=== PATIENT | male | born 1970 | race African-American/Black ===

== ENCOUNTER 2016-10-20 19:58 | Observation (INO) ==
[2016-10-20] MEDS ORDERED: ASPIRIN PO STA (20:41)
[2016-10-20 20:48] LABS: MANUAL DIFF NEEDED? NO
[2016-10-20 20:50] LABS: BASO% 0.1 % (0.0-0.8); EOS# 0.07 X1000 (0.0-0.7); EOS% 0.9 % (0.0-10.0); HEMATOCRIT 41.3 % (42.0-52.0); HEMOGLOBIN 14.1 g/dL (14.0-18.0); LYMPH# 3.26 X1000 (1.2-3.4); LYMPH% 41.3 % (20.5-51.1); MCH 31.3 PG (27-31); MCHC 34.1 g/dL (33-37); MCV 91.8 FL (81-99); MONO# 0.76 X1000 (0.11-0.59); MONO% 9.6 % (1.7-9.3); MPV 9.8 FL (7.4-10.4); NEUT% 48.1 % (42.2-75.2); PLT 297 X1000 (130-400)
[2016-10-20 20:59] LABS: INR 1.04; PTT 26.9 Seconds (22.0-36.0)
[2016-10-20 21:05] LABS: AGAP 14; ALBUMIN 4.4 g/dL (3.5-5.0); ALKALINE PHOSPHATASE 64 U/L (32-122); BUN 17 mg/dL (8-22); CALCIUM 9.2 mg/dL (8.8-10.2); CHLORIDE 100 mmol/L (98-107); COSMO 282; GOT 18 U/L (10-34); GPT 19 U/L (10-44); MAGNESIUM 1.9 mg/dL (1.5-2.7); POTASSIUM 3.6 mmol/L (3.5-5.1); SODIUM 140 mmol/L (136-145); TCO2 26 mmol/L (25-35); TOTAL BILIRUBIN 0.27 mg/dL (0.20-1.00); TOTAL PROTEIN 8.1 g/dL (6.3-8.3)
[2016-10-20 21:09] LABS: CK PROFILE 402 U/L (24-204)
[2016-10-20 21:31] LABS: CK INDEX 1.2 (0.0-2.5); CK-MB 4.75 ng/mL (0.0-5.0)
--- NOTE | 2016-10-20 22:39 | PROVIDER DOCUMENTATION ---
This chart was entered by Danielle Hood Scribe, acting as scribe for Rahul Greco CRNP. HPI-Chest Pain - General Chief Complaint: Chest Pain Stated Complaint: CP Time Seen by Provider: 10/20/16 21:20 Source: patient Allergies/Adverse Reactions: Patient Allergies Allergy/AdvReac Type Severity Reaction Status Date / Time methylprednisolone sodium Allergy Mild "makes him Verified 10/20/16 21:36 succ... * crazy' [From Solu-Medrol] Home Medications: Home Medication List Medication Instructions Recorded Confirmed Last Taken Type Amlodipine [Norvasc] 5 mg PO BID #60 tablet 05/04/16 10/20/16 10/20/16 Rx Clonidine [Catapres] 0.1 mg PO BID 09/05/16 10/20/16 10/20/16 History Esomeprazole [Nexium] 40 mg PO DAILY 09/05/16 10/20/16 10/20/16 History Losartan Potassium [Cozaar] 100 mg PO BID 09/05/16 10/20/16 10/20/16 History Aspirin 81 mg PO DAILY 10/12/16 10/20/16 10/19/16 History - History of Present Illness-CP Location: reports: substernal Chest Pain Radiation: reports: no radiation Quality of Pain: reports: aching Severity in ED: mild Onset/Duration: this evening Timing: still present Aspirin Treatment Today: 325 mg x 1, provided by ED Similar Symptoms Previously?: No Recently Seen Here or By Another Healthcare Provider: No Review of Systems - Adult - REVIEW OF SYSTEMS - ADULT Constitutional: denies: chills, fever Eyes: reports: no symptoms reported Ears, Nose, Mouth & Throat: reports: no symptoms reported Cardiovascular: reports: chest pain. denies: palpitations Respiratory: denies: cough, shortness of breath Gastrointestinal: reports: nausea. denies: vomiting Genitourinary: denies: dysuria, hematuria Musculoskeletal: denies: joint pain, neck pain Integumentary: denies: skin sores/ulcer, skin thickening Neurological: reports: no symptoms reported Psychiatric: reports: no symptoms reported Endocrine: reports: no symptoms reported Hematologic/Lymphatic: reports: no symptoms reported Allergic/Immunologic: reports: no symptoms reported All Other Systems: Reviewed and Negative Past History - Adult - PAST MEDICAL HISTORY-ADULT Review of Records: reports: Nursing Assessment Review, Medications Reviewed Major Childhood Illnesses: reports: denies history Cardiovascular: reports: HTN Respiratory: reports: denies history Gastrointestinal: reports: GERD Obstetrical/Gynecological: reports: denies history Genitourinary: reports: denies history Musculoskeletal: reports: chronic pain, neck/back injury Neurological: reports: CVA, other (pinched nerve in the back) Endocrine/Immune: reports: thyroid disorder Other Conditions: reports: denies history - PRIOR SURGERIES/PROCEDURES Surgical/Procedure History: reports: other (circumcision) - IMMUNIZATION STATUS Childhood Immunizations: UTD Flu Vaccine: UTD - FAMILY HISTORY Family History: reviewed, not pertinent - SOCIAL HISTORY Smoking: non-smoker Substance Use: none/never Alcohol Use Frequency: never Physical Exam-General - PHYSICAL EXAM-ADULT Initial Vital Signs Reviewed: Yes - CONSTITUTIONAL General Appearance: appears well, alert, no apparent distress - RESPIRATORY Respiratory: chest non-tender, lungs clear, normal breath sounds - CARDIOVASCULAR Cardiovascular: normal peripheral pulses, regular rate, rhythm, no edema - GASTROINTESTINAL (ABDOMEN) Abdominal Exam: non tender, soft - MUSCULOSKELETAL Extremity: normal inspection - SKIN Integumentary: normal color, normal turgor, warm/dry - PSYCHIATRIC Psych/Mental Status: normal mood/affect, normal thought content, normal thought process, oriented x 3 Progress - PLAN OF CARE/RESULTS Progress/Plan/Lab Results: Vital Signs - 8 hr 10/20/16 20:00 10/20/16 23:10 Temperature 98.3 F Pulse Rate 64 72 Respiratory Rate 18 18 Blood Pressure 174/102 182/150 O2 Sat by Pulse Oximetry 95 98 Laboratory Results - last 24 hr 10/20/16 10/20/16 10/20/16 20:05 20:05 20:05 WBC 7.90 RBC 4.50 L Hgb 14.1 Hct 41.3 L MCV 91.8 MCH 31.3 H MCHC 34.1 RDW Std Deviation 12.8 Plt Count 297 MPV 9.8 Immature Gran % (Auto) 0.0 Neut % (Auto) 48.1 Lymph % (Auto) 41.3 [place] % (Auto) 9.6 H Eos % (Auto) 0.9 Baso % (Auto) 0.1 Immature Gran # (Auto) 0.00 Neut # (Auto) 3.80 Lymph # (Auto) 3.26 [place] # (Auto) 0.76 H Eos # (Auto) 0.07 Baso # (Auto) 0.01 PT INR PTT (Actin FS) D-Dimer 0.17 Sodium 140 Potassium 3.6 Chloride 100 Carbon Dioxide 26 Anion Gap 14 BUN 17 Creatinine 1.0 Estimated GFR/1.73 m2 > 60 BUN/Creatinine Ratio 17 Glucose 109 H Calculated Osmolality 282 Calcium 9.2 Magnesium 1.9 Total Bilirubin 0.27 AST 18 ALT 19 Alkaline Phosphatase 64 Creatine Kinase 402 H Creatine Kinase Index 1.2 CK-MB (CK-2) 4.75 Troponin T Vaz-I-Xexxvbpuyti Pept Total Protein 8.1 Albumin 4.4 Globulin 3.7 Albumin/Globulin Ratio 1.2 10/20/16 10/20/16 10/20/16 20:05 20:05 20:05 WBC RBC Hgb Hct MCV MCH MCHC RDW Std Deviation Plt Count MPV Immature Gran % (Auto) Neut % (Auto) Lymph % (Auto) [place] % (Auto) Eos % (Auto) Baso % (Auto) Immature Gran # (Auto) Neut # (Auto) Lymph # (Auto) [place] # (Auto) Eos # (Auto) Baso # (Auto) PT 11.0 INR 1.04 PTT (Actin FS) 26.9 D-Dimer Sodium Potassium Chloride Carbon Dioxide Anion Gap BUN Creatinine Estimated GFR/1.73 m2 BUN/Creatinine Ratio Glucose Calculated Osmolality Calcium Magnesium Total Bilirubin AST ALT Alkaline Phosphatase Creatine Kinase Creatine Kinase Index CK-MB (CK-2) Troponin T < 0.010 Tpw-N-Jtaikobvtpk Pept 11 Total Protein Albumin Globulin Albumin/Globulin Ratio 10/20/16 10/20/16 23:00 23:00 WBC RBC Hgb Hct MCV MCH MCHC RDW Std Deviation Plt Count MPV Immature Gran % (Auto) Neut % (Auto) Lymph % (Auto) [place] % (Auto) Eos % (Auto) Baso % (Auto) Immature Gran # (Auto) Neut # (Auto) Lymph # (Auto) [place] # (Auto) Eos # (Auto) Baso # (Auto) PT INR PTT (Actin FS) D-Dimer Sodium Potassium Chloride Carbon Dioxide Anion Gap BUN Creatinine Estimated GFR/1.73 m2 BUN/Creatinine Ratio Glucose Calculated Osmolality Calcium Magnesium Total Bilirubin AST ALT Alkaline Phosphatase Creatine Kinase 413 H Creatine Kinase Index 1.1 CK-MB (CK-2) 4.47 Troponin T < 0.010 Prl-S-Nbvacqlszcw Pept Total Protein Albumin Globulin Albumin/Globulin Ratio Orders Category Date Time Status Admit - [facility] Routine AdmDCTranf 10/20/16 23:46 Ordered Activity - Up with Assistance ORDERED Care 10/20/16 23:46 Active Apply Mechanical Device [QM] ORDERED Care 10/20/16 23:46 Active Intake and Output-Strict ORDERED Care 10/20/16 23:46 Active Nursing- MD Consult Request ROUTINE Care 10/20/16 23:46 Active Vital Signs Order Q 6-HR ASSESS Care 10/20/16 23:46 Active Physician/Provider Consults Routine Cons 10/20/16 23:46 Ordered NPO Diet 10/21/16 00:01 Active CHEST-2 VIEWS [RAD] Stat Exams 10/20/16 20:42 Taken BASIC METABOLIC PANEL [CHEM] Routine Lab 10/21/16 06:00 Ordered CBC WITH DIFF [HEME] DAILY Lab 10/21/16 06:00 Ordered CBC WITH ELECTRONIC DIFF [HEME] Stat Lab 10/20/16 20:05 Completed CK PROFILE [SP CHEM] Stat Lab 10/20/16 20:05 Completed CK PROFILE [SP CHEM] Stat Lab 10/20/16 23:00 Completed COMPREHENSIVE METABOLIC PANEL [CHEM] Stat Lab 10/20/16 20:05 Completed D-DIMER [CHEM] Stat Lab 10/20/16 20:05 Completed LIPID PROFILE W/CALC LDL [LIPIDS] Routine Lab 10/21/16 06:00 Ordered MAGNESIUM [CHEM] Stat Lab 10/20/16 20:05 Completed PRO B-NATRIURETIC PEPTIDE Stat Lab 10/20/16 20:05 Completed PROTIME WITH INR [COAG] Stat Lab 10/20/16 20:05 Completed PTT [COAG] Stat Lab 10/20/16 20:05 Completed TROPONIN T Lab 10/21/16 05:00 Uncollected TROPONIN T Lab 10/21/16 11:00 Uncollected TROPONIN T Stat Lab 10/20/16 20:05 Completed TROPONIN T Stat Lab 10/20/16 23:00 Completed Acetaminophen [Tylenol] Med 10/20/16 23:46 Active 650 mg PO Q6H PRN PRN Amlodipine [Norvasc] Med 10/21/16 09:00 Active 5 mg PO BID Aspirin Med 10/20/16 20:41 Discontinued 325 mg PO STAT STA Aspirin Med 10/21/16 09:00 Active 81 mg PO DAILY Clonidine [Catapres] Med 10/21/16 09:00 Active 0.1 mg PO BID Esomeprazole [Nexium] Med 10/21/16 09:00 Active 40 mg PO DAILY Losartan [Cozaar] Med 10/21/16 09:00 Active 100 mg PO BID Ondansetron [Zofran] Med 10/20/16 23:46 Active 4 mg IV Q4H PRN PRN Telemetry [OM.EQ] Routine Oth 10/20/16 23:46 Active EKG [EKG] Stat Ther 10/21/16 07:00 Ordered Echo Spec/Color Dop W/O Contra Routine Ther 10/21/16 08:00 Ordered Transfer/Admit Order [TRANSFER] Routine Transfer 10/20/16 23:01 Completed Result Diagrams: 10/20/16 20:05 10/20/16 20:05 - EKG 1 Time of EKG reading by physician:: 19:56 EKG Read and Signed by:: Daniel Rust EKG Interpretation (*Must complete 3 of following elements*): Abnormal Rate: 66 Rhythm: NSR [place]: right Comments: possible anterior infarct, age undetermined 2 Time of EKG reading by physician:: 23:03 EKG Read and Signed by:: Daniel Rust EKG Interpretation (*Must complete 3 of following elements*): Normal Rate: 68 Rhythm: NSR [place]: normal - XRAY 1 XRAY Study: Chest Impression: Normal XRAY Interpretation: negative: Aura Greco(ER CROTCH BREAKER) Departure - Departure Time of Disposition Decision: 22:34 DIAGNOSIS: Chest pain Disposition: HOME 01 Certified Medical Emergency: Emergent Condition: Stable Attestation - Physician/ MICHELLE Attestation Patient care was provided by Advanced Practice Provider:: Yes Advanced Practice Provider:: Rahul Greco Advanced Practice Provider documentation review:: The Mid-level provider documentation, treatment plan and medical decision making was reviewed by the physician who agrees with all treatment and medical decision making by the MLP. This chart was documented by the indicated scribe, (Danielle Hood Scribe) and accurately reflects the services I performed and decisions made by , Rahul Greco CRNP, as attested by the provider's signature.
[2016-10-20] MEDS ORDERED: TYLENOL PO PRN (23:46)
[2016-10-20] MEDS ORDERED: ZOFRAN IV PRN (23:46)
[2016-10-21 01:08] LABS: CK INDEX 1.1 (0.0-2.5); CK-MB 4.47 ng/mL (0.0-5.0)
--- NOTE | 2016-10-21 05:37 | EKG Report ---
Test Performed on : 10/20/2016 11:03:13 PM Test Reason : CP Blood Pressure : / mmHG Vent. Rate : 068 BPM Atrial Rate : 068 BPM P-R Int : 186 ms QRS Dur : 088 ms QT Int : 398 ms P-R-T Axes : 027 085 024 degrees QTc Int : 423 ms Normal sinus rhythm. Normal ECG When compared with ECG of 20-OCT-2016 19:56, (Unconfirmed) No significant change was found Unconfirmed Result
--- NOTE | 2016-10-21 05:37 | EKG Report ---
Test Performed on : 10/20/2016 7:56:22 PM Test Reason : No Order in [place] Blood Pressure : / mmHG Vent. Rate : 066 BPM Atrial Rate : 066 BPM P-R Int : 180 ms QRS Dur : 094 ms QT Int : 398 ms P-R-T Axes : 014 106 025 degrees QTc Int : 417 ms Normal sinus rhythm. Rightward axis Possible Anterior infarct , age undetermined Abnormal ECG When compared with ECG of 21-JUN-2016 16:22, QRS axis shifted right Unconfirmed Result
[2016-10-21 06:04] LABS: MANUAL DIFF NEEDED? NO
[2016-10-21 06:24] LABS: BASO% 0.1 % (0.0-0.8); EOS# 0.06 X1000 (0.0-0.7); EOS% 0.8 % (0.0-10.0); HEMATOCRIT 42.4 % (42.0-52.0); HEMOGLOBIN 14.3 g/dL (14.0-18.0); IMM GRAN# 0.02 X1000 (0.0-0.04); IMM GRAN% 0.3 % (0.0-0.5); LYMPH% 32.2 % (20.5-51.1); MCH 30.9 PG (27-31); MCHC 33.7 g/dL (33-37); MCV 91.6 FL (81-99); MONO# 0.76 X1000 (0.11-0.59); MONO% 10.2 % (1.7-9.3); MPV 9.6 FL (7.4-10.4); NEUT% 56.4 % (42.2-75.2); PLT 274 X1000 (130-400); RBC 4.63 XMIL (4.7-6.1)
--- NOTE | 2016-10-21 06:48 | HISTORY AND PHYSICAL ---
PRIMARY CARE PHYSICIAN: Dr. Chintan Burrell. CHIEF COMPLAINT: Chest pain. HISTORY OF PRESENT ILLNESS: This is a 46-year-old, male with a past medical history of hypertension and a history of TIA who presented to the emergency department complaining of chest pain. He is a patient of Dr. Chintan Burrell. The patient was also here in the hospital for radiology. The patient reported that this morning, around 4:00 p.m., he noticed some substernal chest pain like having a squeezing pain in the right and left side of the thorax that radiates to the left arm, that lasted approximately 15-20 minutes, along with some diaphoreses and sensation of mild nausea. At that time, the patient took an aspirin. Apparently, the started easing a little bit. Also, patient was driving when he noticed the same sensation but a little more worse; according to him, 7-8/10 intensity chest pain again, squeezing, radiating again to the left arm, no radiation to jaw or the back, and nausea and diaphoreses so he decided to drive himself to the ER. Even though here in the hospital, pulmonary evaluation, he was still hurting but 5-6/10 in intensity. The patient reports that this problem, he had it 6-7 years ago but now, it is happening again. The patient reports being active and usually goes to the gym but he had not noticed any chest pain while he is doing any exercise at all. Patient is going to be admitted to the hospital for further evaluation and treatment for chest pain. PAST MEDICAL HISTORY: 1. Hypertension. 2. Gastroesophageal reflux disease. 3. History of TIA. Apparently, he was told that he had a stroke but we checked MRI and MRA and that was completely normal. MEDICATIONS: 1. Amlodipine 5 mg p.o. b.i.d. 2. Clonidine 0.1 mg p.o. b.i.d. 3. Nexium 40 mg p.o. daily. 4. Losartan 100 mg p.o. b.i.d. 5. Aspirin 81 mg p.o. b.i.d. 6. Patient is supposed to be on medication for hyperlipidemia but he reported that it caused headaches so it was stopped. FAMILY HISTORY: Noncontributory. SOCIAL HISTORY: He denies drinking alcohol, smoking tobacco, or using illicit drugs. ALLERGIES: Patient is allergic to methylprednisolone, Medrol pack because he reports this medication makes him crazy. REVIEW OF SYSTEMS: Eleven systems were reviewed and all symptoms are related to H and P. No weight gain or loss noted. No fever or chills. PHYSICAL EXAMINATION: VITALS: Temperature 98.3 degrees, heart rate 72, respiratory rate 18, blood pressure 182/102, O2 saturation 95% on room air. GENERAL EXAMINATION: This is a 46-year-old, male, lying in bed, in no acute distress. HEENT: Head is normocephalic and atraumatic. Anicteric sclerae and pale conjunctivae. Mucous membranes moist. NECK: Supple. No JVD noted. No carotid bruits. No lymphadenopathy. No thyromegaly. CARDIOVASCULAR: S1 and S2 heard. No murmurs, gallops, or rubs. Regular rate and rhythm. RESPIRATORY: Clear bilaterally to auscultation. No work of breathing or using accessory muscles. ABDOMEN: Soft, nontender to palpation. Bowel sounds present. No organomegaly. EXTREMITIES: No clubbing, cyanosis, or edema. Peripheral pulses present in both legs. NEUROLOGICAL: Patient is alert and oriented x3. Able to move 4 extremities. Cranial nerves 2-12 are grossly normal. LABORATORY DATA: The CBC and the BMP are completely unremarkable. First set of troponins is negative. CK-MB is normal as well. ASSESSMENT: 1. Chest pain. 2. Uncontrolled hypertension. 3. Hyperlipidemia. PLAN: 1. The patient is going to be admitted to the hospital because of chest pain. We are going to admit him. We will continue the workup. We are going to check troponins 2 more times. First set is completely normal. We are going to check an echocardiogram. We are going to consult cardiology to see this patient, will need to have a stress test or not. We defer the decision to proceed with that exam to cardiology. We are going to repeat an EKG in the a.m., make sure that he is not having any abnormal reading. Also, we are going to continue with aspirin daily. Also, for blood pressure, actually we are going to restart all home medications. He claims that he is taking his medication that he is supposed to but blood pressure is still high, in the range of 180s when I checked on him. At this time, we are going to continue with the same management and keep an eye on him very closely. 2. For gastroesophageal reflux disease, we will continue with the Nexium. 3. Further recommendations to follow according to the clinical situation of the patient. 4. Dr. Chintan Burrell, his primary care physician, will be taking over his case tomorrow morning. cc: MD Chintan Delvalle MD
--- NOTE | 2016-10-21 06:56 | EKG Report ---
Test Performed on : 10/21/2016 06:09:38 AM Test Reason : chest pain Blood Pressure : / mmHG Vent. Rate : 059 BPM Atrial Rate : 059 BPM P-R Int : 204 ms QRS Dur : 096 ms QT Int : 442 ms P-R-T Axes : 031 100 037 degrees QTc Int : 437 ms Sinus bradycardia. Rightward axis Borderline ECG When compared with ECG of 20-OCT-2016 23:03, No significant change was found Confirmed by Marino GALARZA, Celestino Bryant ([id number]) on 10/21/2016 5:53:53 PM
[2016-10-21 07:00] LABS: AGAP 11; BUN 15 mg/dL (8-22); CHLORIDE 101 mmol/L (98-107); COSMO 280; HDL 33 mg/dL (35-55); LDL 112 mg/dL; POTASSIUM 3.8 mmol/L (3.5-5.1); SODIUM 139 mmol/L (136-145); TCO2 27 mmol/L (25-35); TRIGLYCERIDES 179 mg/dL (39-160); VLDL 36 mg/dL
--- NOTE | 2016-10-21 08:09 | Diag Imaging Result Document ---
PROCEDURE NAME: CHEST-2 VIEWS - 10/20/2016 FRONTAL AND LATERAL CHEST, TWO VIEWS: COMPARISON: 10/12/2016. FINDINGS: The lungs are well expanded. The heart is not enlarged. The vessels are not distended. No pneumonia. No pleural effusions. No free air beneath the diaphragm. IMPRESSION: No acute abnormality.
[2016-10-21] MEDS ORDERED: COZAAR PO SCH (09:00)
[2016-10-21] MEDS ORDERED: ASPIRIN PO SCH (09:00)
[2016-10-21] MEDS ORDERED: NORVASC PO SCH (09:00)
[2016-10-21] MEDS ORDERED: NEXIUM PO SCH (09:00)
[2016-10-21] MEDS ORDERED: CATAPRES PO SCH (09:00)
[2016-10-21] MEDS ORDERED: G.I. COCKTAIL PO ONE (09:31)
[2016-10-21] MEDS: CARAFATE LIQUID PO SCH ×2 (09:50→14:42)
[2016-10-21 10:04] LABS: HEMOGLOBIN A1C 7.3 % (4.8-6.0)
[2016-10-21] MEDS ORDERED: LEXISCAN ONE (12:08)
[2016-10-21 15:59] VITALS: BP 146/87
--- NOTE | 2016-10-21 20:16 | Diag Imaging Result Document ---
PROCEDURE NAME: MYOCARDIAL PERF SCAN, STR/REST - 10/21/2016 STUDY: Rest-stress walking Lexiscan myocardial perfusion study. REQUESTING PHYSICIAN: Dr. Dixon. INDICATION: Chest pain, severe hypertension. PRIMARY PHYSICIAN: Dr. Chintan Burrell. DESCRIPTION: The patient came into the Nuclear Lab, received a rest injection of technetium 99 sestamibi 14.7 millicuries. Multiple tomographic views of the cardiac structure were obtained at rest. Subsequently he walked on the treadmill using a modified protocol along with infusion of Lexiscan 0.4 mg. At peak infusion, injected with technetium 99 sestamibi 43.6 millicuries. Multiple tomographic views of the cardiac structure were obtained following completion of the protocol. SUMMARY OF ELECTROCARDIOGRAPHIC PORTION OF STUDY: Resting ECG shows sinus rhythm, frequent PVCs. There is left ventricular hypertrophy. Resting heart rate 59 beats per minute. Resting blood pressure 150/96. During the protocol, the heart rate increased to 127 beats per minute. Blood pressure went up to 180/106. The patient reports no chest pain, shortness of breath, or palpitations. ECG showed no ischemic changes. Following the completion of the infusion, the heart rate and blood pressure returned back to baseline. IMPRESSION: In summary, the electrocardiographic response to the walking Lexiscan protocol is deemed to be normal. SUMMARY OF MYOCARDIAL PERFUSION PORTION OF STUDY: Poststress tomographic views of the left ventricle show normal homogeneous distribution of radiotracer throughout the entire left ventricular myocardium. There is no evidence of any postexercise defect. Rest images show normal perfusion. Polar plots reveal the same. There is no evidence of neither inducible ischemia nor myocardial scar. Gated SPECT shows normal left ventricular systolic function. Ejection fraction 55%. Normal ventricular volumes. No wall motion abnormality. Lung/heart ratio is normal. TID is normal. IMPRESSION: In summary, this study shows: 1. Normal electrocardiographic response to walking Lexiscan protocol. 2. Normal poststress myocardial perfusion scan. There is no scintigraphic evidence of pharmacologically induced myocardial ischemia utilizing the walking Lexiscan protocol. 3. Normal left ventricular systolic function. Ejection fraction estimated at 55% with normal ventricular volumes. No wall motion abnormality. This study would indicate a low risk for ischemic events. Clinical correlation recommended. cc: MD Trudy Marie PA
--- NOTE | 2016-10-21 20:31 | CONSULTATION ---
DATE OF CONSULTATION: 10/21/2016 CHIEF COMPLAINT: Chest pain, shortness of breath. HISTORY OF PRESENT ILLNESS: Mr. Stafford is a very pleasant 46-year-old black gentleman who is known to me. The patient presented to the hospital with complaints of tightness in the chest associated with shortness of breath, diaphoresis, some heaviness in the left arm. That started yesterday about 4 p.m. and it just kept on getting worse. At 7:30 p.m., it was really more significant. Eventually he ended up coming to the emergency room. In the ER, they documented significantly elevated blood pressure. They did an EKG at 7:56 p.m. last night that showed sinus rhythm with a rightward axis, no acute ischemic changes. Subsequent EKG done at 11:03 p.m. showed sinus rhythm, no acute ischemic changes. The patient has been given some medications to optimize his blood pressure. He is feeling better now. PAST MEDICAL HISTORY: His past history is positive for hypertension for a number of years. He has been diagnosed with gastroesophageal reflux disease. At some point, he had symptoms suspicious for transient ischemic attack. We also at some point performed a left heart catheterization on him because of suspected coronary heart disease. Eventually his coronary arteries were found to be normal. PAST SURGICAL HISTORY: His surgical history is not significant. FAMILY HISTORY: Mother and father had cancer. SOCIAL HISTORY: He is . He has children. He lives at home. He works here for [employer]. He is not a smoker nor a drinker. ALLERGIES: Medrol Dosepak. HOME MEDICATIONS: 1. Losartan 100 twice a day. 2. Nexium 40 daily. 3. Clonidine 0.1 twice a day. 4. Aspirin 81 daily. 5. Amlodipine 5 twice a day. REVIEW OF SYSTEMS: His review of systems is really noncontributory. He is really very active. He has been monitoring his blood pressure 3 times a week and he has noted that certain measurements are in the high end of normal. PHYSICAL EXAMINATION: Vital signs: Now blood pressure is 156/108, temperature 98 degrees, pulse 60, respirations 14. General: He is awake, alert and oriented, in no distress. HEENT: Unremarkable. Chest: Clear to auscultation and percussion. Cardiac: Heart sounds regular and rhythmic. No gallop or murmur. Abdomen: Nontender. Soft. No masses or hepatomegaly. Extremities: Show good pulses, no edema. Neurologic: He moves four extremities. Follows commands. Alert and oriented x3. LABORATORY DATA: Sodium 139, potassium 3.8, BUN 15, creatinine 1.0. Serial troponin levels were checked, a total of 4, all of them negative. His pro BNP level was normal at 11. Total cholesterol 181, triglycerides 179, LDL 112, HDL 33. White cell count 7460, hemoglobin 14.3, platelet count normal at 274,000. Pro-time, PTT, D-dimer normal. Chest x-ray read by the radiologist is normal. IMPRESSION: 1. Mr. Stafford presented with chest discomfort, shortness of breath, suspected coronary syndrome. 2. Uncontrolled hypertension. 3. History of gastric reflux. RECOMMENDATIONS: At this point in time, I would suggest to review the results of the stress test and the echocardiogram. Further advice will be forthcoming. ADDENDUM: The myocardial perfusion stress test was reviewed. The patient demonstrated somewhat frequent PVCs during the ECG portion of the test. The perfusion images are normal. Echocardiographic study is really unremarkable. I would consider perhaps trying labetalol 200 twice a day instead of clonidine and use the clonidine only as needed in case his blood pressure systolic climbs up above 180 systolic. I will discuss this with Dr. Burrell and further advice will be forthcoming. The patient may get to be discharged later on today. cc: MD Chintan Marie MD
--- NOTE | 2016-10-22 06:29 | DISCHARGE SUMMARY ---
ADMISSION DATE: 10/20/2016 DISCHARGE DATE: 10/21/2016 ADMISSION DIAGNOSIS: Chest discomfort. DISCHARGE DIAGNOSES: 1. Chest discomfort, noncardiac. 2. Reflux disease. 3. Hypertension, present on arrival. 4. Palpitations. 5. Hyperlipidemia, present on arrival. CONSULTATIONS: Dr. Dixon with Cardiology was consulted for further evaluation and management of chest discomfort. PROCEDURES: 1. Echocardiogram was performed on 10/21/2016 with the preliminary report returning without significant pathology. 2. A stress test was performed on 10/21/2016 with preliminary report returning without evidence of ischemia. HISTORY AND PHYSICAL EXAMINATION: See admit note. PHYSICAL EXAMINATION PRIOR TO DISCHARGE: Vital Signs: Temperature 98.1 degrees, heart rate 75, respirations 14 and blood pressure is 140/99. General: Well nourished and well developed in no acute distress. Cardiovascular: Regular rate and rhythm. No significant murmurs, rubs, or gallops. Pulmonary: Clear to auscultation bilaterally. Abdomen: Soft, nontender, and nondistended. Positive bowel sounds. Extremities: Moves all extremities well. No significant clubbing, cyanosis, or edema. Dermatologic: Evaluation reveals no evidence of rash. LABORATORY DATA: Prior to discharge, white blood cell count 7.46, hemoglobin 14.3, hematocrit 42.4, and platelet count 274,000. Sodium 139, potassium 3.8, chloride 101, bicarb 27, BUN 15, creatinine 1.0. Glucose 129, calcium 9.0, hemoglobin A1c 7.3. Total cholesterol 181, HDL 33, LDL is 112. Triglyceride level 179. HOSPITAL COURSE: Patient was admitted as per history and physical examination. Hospital course per condition is as follows. 1. Chest discomfort-upon admission, patient was placed on chest pain protocol. He was noted to have multiple risk factors including diabetes, hypertension, and hyperlipidemia. Serial cardiac enzymes revealed a chronically elevated CK level, but no evidence of elevation of troponin or CK-MB. The patient was treated supportively. Cardiology was consulted. Stress test and echocardiogram on the day of discharge returned without significant pathology. Patient will be discharged home with aggressive management of his reflux disease. We will follow his clinical course closely. 2. Diabetes-This is a new onset. We discussed this in detail. We will encourage low carbohydrate and low sugar diet. We will plan to see the patient within the next week to 2 weeks in clinic and consider initiation of metformin therapy. 3. Hyperlipidemia - Patient has longstanding disease. We will continue atorvastatin therapy. 4. Hypertension-Patient has longstanding disease. Currently, he is being treated with losartan, amlodipine, and clonidine therapy. We will attempt to transition to propranolol 20 mg twice daily. We will change clonidine to 0.1 mg twice daily as needed for systolic blood pressure above 150. I have asked patient to keep a log of blood pressure between now and next visit. 5. Palpitations-During patient's stress test, he was noted to have intermittent PVCs. For this reason, we will attempt a beta carline. We will follow his heart rate closely. 6. Reflux disease-patient has longstanding disease. He has been prescribed Nexium in the past. Unfortunately, he was unable to afford this. I have asked patient to start over the counter omeprazole daily for the next 2 weeks and then as needed thereafter. Once again, this will be followed. DISCHARGE CONDITION: Good. DISPOSITION: Discharge to home. MEDICATIONS: 1. Amlodipine 5 mg twice daily. 2. Aspirin 81 mg daily. 3. Clonidine 0.1 mg twice daily as needed for systolic blood pressure above 150. 4. Losartan 100 mg daily. 5. Atorvastatin 20 mg at bedtime. 6. Propranolol 20 mg twice daily. FOLLOWUP: The patient is to follow with me in approximately 1-2 weeks. The patient to follow with Dr. Dixon as arranged. cc: Chintan Burrell MD
--- NOTE | 2016-10-30 15:42 | ECHO REPORT ---
ORDER DATE: 10/21/2016 INDICATION FOR THE PROCEDURE: Chest pain, hypertension. FINDINGS: 1. Right atrium is normal in size. 2. Trace tricuspid regurgitation identified. 3. Normal RV size and systolic function. 4. Mild pulmonic insufficiency. 5. Normal left atrial size. 6. No mitral prolapse. Mild mitral regurgitation. 7. Normal LV size with moderate evidence of left ventricular hypertrophy. Posterior and interventricular septal wall thickness 1.4 cm each. The end-diastolic volume is 4.7. Estimated ejection fraction of 55% with normal wall motion. 8. Aortic valve opens well. There is mild aortic insufficiency. No evidence of stenosis. 9. Aorta appears normal in visualized segments. 10. No pericardial effusion seen. cc: MD Jose Ohara MD Scott A. Matthews, MD
== END 2016-10-21 16:00 | disposition home or self-care (01) ==
LOC: EDIPHOLD 19:58 → ED 19:58 → SUATTDRO 23:26
PROVIDERS: ADMIT Internal Medicine; ATTEND Internal Medicine

== ENCOUNTER 2018-11-15 18:12 | Inpatient (IN) ==
[2018-11-15] MEDS ORDERED: ZOFRAN IV PRN (18:31)
[2018-11-15] MEDS ORDERED: TYLENOL PO PRN (18:31)
[2018-11-15 18:54] LABS: URINE SOURCE CLEAN CATCH
[2018-11-15 18:57] LABS: BILIRUBIN URINE NEGATIVE (NEGATIVE); BLOOD URINE LARGE (NEGATIVE); COLOR STRAW; GLUCOSE URINE >1000 mg/dL (NEGATIVE); KETONE URINE TRACE mg/dL (NEGATIVE); LEUKOCYTES URINE TRACE (NEGATIVE); NITRITE URINE NEGATIVE (NEGATIVE); PH URINE 6.5; PROTEIN URINE 30 mg/dL (NEGATIVE); SP GRAVITY URINE 1.039; TURBIDITY URINE CLEAR (CLEAR); UROBILINOGEN URINE NORMAL (NORMAL)
[2018-11-15 18:58] LABS: UR EPITHELIAL CELLS <10 /HPF (<10); URINE BACTERIA 1+ /HPF; URINE RBC TNTC /HPF (<10); URINE WBC TNTC /HPF (<10)
--- NOTE | 2018-11-15 19:42 | Diag Imaging Result Doc PS360 ---
EXAM: CT ABDOMEN/PELVIS W/O CONTRAST HISTORY: LLQ pain with guarding/ hematuria TECHNIQUE: CT abdomen and pelvis without contrast COMPARISON: None. FINDINGS: 09/05/2016 there are nodules in the right lung base similar to the prior exam likely from a prior granulomatous infection. There is fatty infiltration of the liver. No calcified gallstones or adjacent inflammation. Normal spleen, pancreas, adrenal glands, and kidneys. No renal stones. No hydronephrosis. Normal aorta. Normal appendix. No abscess. There is stool throughout the colon. No ascites. Urinary bladder is not distended. There are fat filled inguinal hernias. IMPRESSION: 1.Constipation 2.Fat filled inguinal hernias This exam was performed using automated exposure control, adjustment of mA or kV according to patient size, and/or use of iterative reconstruction technique. Electronically signed by Terry Batres 11/15/2018 7:40 PM
[2018-11-15 20:21] LABS: BASO# 0.02 X1000 (0.0-0.2); BASO% 0.2 % (0.0-0.8); EOS# 0.06 X1000 (0.0-0.7); EOS% 0.6 % (0.0-10.0); HEMATOCRIT 42.5 % (42.0-52.0); HEMOGLOBIN 14.3 g/dL (14.0-18.0); IMM GRAN# 0.02 X1000 (0.0-0.04); IMM GRAN% 0.2 % (0.0-0.5); LYMPH# 3.25 X1000 (1.2-3.4); LYMPH% 31.6 % (20.5-51.1); MCH 30.1 PG (27-31); MCHC 33.6 g/dL (33-37); MCV 89.5 FL (81-99); MONO# 0.82 X1000 (0.11-0.59); MPV 9.9 FL (7.4-10.4); NEUT# 6.13 X1000 (1.4-6.5); NEUT% 59.4 % (42.2-75.2); PLT 274 X1000 (130-400); RBC 4.75 XMIL (4.7-6.1); RDW 12.9 % (11.5-14.5)
[2018-11-15] MEDS: GLUCOPHAGE XR PO SCH (20:36)
[2018-11-15] MEDS: NORVASC PO SCH (20:36)
[2018-11-15] MEDS: INDERAL PO SCH (20:37)
[2018-11-15] MEDS: NS 1,000 ML IV SCH (20:37)
[2018-11-15 20:43] LABS: AGAP 11; ALB/GLOB RATIO 1.4; ALBUMIN 4.6 g/dL (3.5-5.0); ALKALINE PHOSPHATASE 91 U/L (32-122); BUN 11 mg/dL (8-22); CALCIUM 9.1 mg/dL (8.8-10.2); CHLORIDE 103 mmol/L (98-107); COSMO 289; ESTIMATED GFR > 60; GLUCOSE 242 mg/dL (70-104); GOT 11 U/L (10-34); GPT 13 U/L (10-44); POTASSIUM 3.8 mmol/L (3.5-5.1); SODIUM 141 mmol/L (136-145); TCO2 27 mmol/L (25-35); TOTAL BILIRUBIN 0.16 mg/dL (0.20-1.00); TOTAL PROTEIN 7.8 g/dL (6.3-8.3)
[2018-11-15] MEDS ORDERED: CRESTOR PO SCH (21:00)
[2018-11-15] MEDS: LEVAQUIN PO SCH (21:37)
[2018-11-15] MEDS: JANUVIA PO SCH (21:37)
[2018-11-15] MEDS: HUMALOG SUBQ SCH (21:38)
--- NOTE | 2018-11-15 22:03 | HISTORY AND PHYSICAL ---
PRIMARY CARE PHYSICIAN: Dr. Chintan Burrell. CHIEF COMPLAINT: Urinary frequency, blurred vision, profound weakness. HISTORY OF PRESENT ILLNESS: A 48-year-old male with a complicated past medical history presents for evaluation of above-mentioned symptoms. Current history of present illness began approximately 2 weeks ago. At that time, patient developed urinary frequency. Soon thereafter, he developed low back pain, intermittent blurred vision, and profound weakness. The patient has been taking his metformin 1000 mg twice daily as prescribed. He has tolerated this reasonably well with the exception of some loose stools. Despite this, patient has had persistent elevation of his blood sugars. He attempted dietary modification unsuccessfully. Over the course of the last 2 weeks, he has had progressive urinary frequency. He has lost 7 pounds over the course of the last 2 months. He has had nonlimiting chest discomfort, but denies palpitations, dysuria, pyuria, fevers, chills, cough, and congestion. Today patient's overall symptoms increased considerably prompting his visit to my office. While there, blood sugar was noted to be greater than 300. He was noted to have profound weakness and feeling of ill being. For this reason, patient will be admitted to the hospital for full evaluation and management. PAST MEDICAL HISTORY: 1. Abnormal electrocardiogram with right axis deviation and possible right ventricular hypertrophy. 2. Allergic rhinitis. 3. History of chest discomfort with negative left heart catheterization in 2009 and negative stress testing in October 2016. 4. Diabetes. 5. Reflux disease. 6. Hypertension. 7. Hyperlipidemia. 8. Hypothyroidism. 9. Low HDL. 10. Low back pain. 11. Obstructive sleep apnea. 12. Overweight. 13. Palpitations. FAMILY HISTORY: [*]Of gastric cancer, hepatoma, and colon cancer. Family history of ischemic heart disease. 1. History of insomnia. 2. History of a transient ischemic attack in 2013. 3. Mild valvular heart disease. CURRENT MEDICATIONS: 1. Aspirin 81 mg daily. 2. Claritin 10 mg daily as needed. 3. Clonidine 0.1 mg 3 times daily. 4. Co-Q10 100 mg daily. 5. Losartan 100 mg daily. 6. Metformin 1000 mg twice daily. 7. Norvasc 5 mg twice daily. 8. Propranolol 20 mg twice daily. 9. Rosuvastatin 5 mg daily. 10. Unisom 25 mg at bedtime as needed. ALLERGIES: Patient states he is allergic to amitriptyline which causes somnolence, Lipitor which causes myalgias, lisinopril which causes cough, Maxalt which causes lethargy, and trazodone which causes nightmares. SOCIAL HISTORY: Patient denies tobacco, alcohol or illicit drug use. 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 He exercises intermittently. FAMILY HISTORY: [*]Patient's father passed at age 55 secondary to complications of gastric cancer. Patient's mother passed at age 58 secondary to complications of a hepatoma. REVIEW OF SYSTEMS: A 12 point review of systems was performed. Pertinent positives and negatives are noted in the history of present illness. PHYSICAL EXAMINATION: VITAL SIGNS: Temperature 98.1 degrees, heart rate 78, respirations 18, blood pressure is 144/88. GENERAL: Well nourished, well developed, no acute distress. HEENT: Normocephalic, atraumatic. Pupils equal, round, reactive to light. Extraocular muscles intact. Sclerae anicteric. [place] conjunctivae. Oral and nasopharynx clear without exudate. NECK: Supple. No lymphadenopathy. No thyromegaly. No bruits auscultated. CARDIOVASCULAR: Regular rate and rhythm. No significant murmurs, rubs, or gallops. PULMONARY: Clear to auscultation bilaterally. ABDOMEN: Soft, nontender, nondistended. Positive bowel sounds. EXTREMITIES: Moves all extremities well. No significant clubbing, cyanosis, or edema. NEUROLOGIC: Cranial nerves 2-12 grossly intact. Motor and sensory grossly intact. PSYCHOLOGIC: Appropriate. LABORATORY DATA: White blood cell count 10.30, hemoglobin 14.3, hematocrit 42.5 platelet count 274,000. Sodium 141, potassium 3.8, chloride 103, bicarb 27, BUN 11, creatinine 1.0, glucose 242. Hemoglobin A1c 11.0, calcium 9.1, total bilirubin 0.16, total protein 7.8, albumin 4.6, alkaline phosphatase 91, AST 11, ALT 13, TSH 3.62. Urinalysis revealed greater than 1000 glucose, 30 protein, trace ketones, large blood, too many to count white blood cells, 1+ bacteria. CT scan abdomen, pelvis revealed constipation and fat filled inguinal hernias. ASSESSMENT AND PLAN: 48-year-old male with past medical history as noted presents for evaluation of profound weakness, urinary frequency, and blurred vision. The patient's blood sugar was noted to be elevated, likely the etiology. Additionally, labs were significant for an abnormal urinalysis. The patient will be admitted to the hospital for full evaluation and management of each of these conditions. 1. Admit to General Medicine. 2. Diabetes-blood sugars are grossly elevated despite metformin therapy. We will continue metformin. We will add Januvia. We will cover patient with sliding scale insulin. We will need to determine whether discharge home on Lantus is appropriate. 3. Urinary tract infection-this certainly could be playing a role in his overall feeling of ill being. We will start patient on levofloxacin therapy. We will follow urine culture. 4. Hypertension. Patient's blood pressure is moderately elevated. We will continue his home regimen. We will follow this while hospitalized. 5. Profound weakness-this likely is a consequence of his acute illness and hyperglycemia. We will treat each of these as above. 6. Blurred vision-I am concerned this likely is diabetic associated. We will work towards optimizing blood sugar control. 7. Hyperlipidemia-we will continue patient on rosuvastatin therapy. 8. Fluid, electrolytes, nutritional. Will monitor electrolytes. Normal saline at 75 mL an hour. Diabetic diet. 9. Prophylaxis. Patient will be placed on subcu Lovenox. cc: Chintan Burrell MD
[2018-11-16] MEDS: NS 1,000 ML IV SCH (06:55)
[2018-11-16] MEDS: HUMALOG SUBQ SCH ×3 (06:55→15:53)
--- NOTE | 2018-11-16 08:21 | EKG Report ---
Test Performed on : 11/15/2018 6:43:24 PM Test Reason : Chest pain Blood Pressure : / mmHG Vent. Rate : 071 BPM Atrial Rate : 071 BPM P-R Int : 180 ms QRS Dur : 094 ms QT Int : 388 ms P-R-T Axes : 040 092 030 degrees QTc Int : 421 ms Normal sinus rhythm. Rightward axis Borderline ECG When compared with ECG of 21-DEC-2017 09:32, No significant change was found Confirmed by Gelacio GALARZA, Osmin Tellez ([id number]) on 11/17/2018 8:45:24 AM
[2018-11-16] MEDS: JANUVIA PO SCH (08:50)
[2018-11-16] MEDS: LEVAQUIN PO SCH (08:50)
[2018-11-16] MEDS: GLUCOPHAGE XR PO SCH (08:50)
[2018-11-16] MEDS: NORVASC PO SCH (08:50)
[2018-11-16] MEDS: INDERAL PO SCH (08:50)
[2018-11-16] MEDS: CATAPRES PO SCH ×2 (08:51→15:52)
[2018-11-16] MEDS ORDERED: COZAAR PO SCH (09:00)
[2018-11-16] MEDS ORDERED: ASPIRIN PO SCH (09:00)
[2018-11-16] MEDS ORDERED: LOVENOX SUBQ SCH (09:00)
[2018-11-16] MEDS ORDERED: COENZYME Q10 PO SCH (09:00)
[2018-11-16 15:47] VITALS: BP 144/90
--- NOTE | 2018-11-17 11:42 | DISCHARGE SUMMARY ---
ADMISSION DATE: 11/15/2018 DISCHARGE DATE: 11/16/2018 ADMISSION DIAGNOSES: 1. Urinary frequency. 2. Blurred vision. 3. Profound weakness. DISCHARGE DIAGNOSES: 1. Diabetes with uncontrolled blood sugars, improving. 2. Urinary tract infection, improving. 3. Hematuria, resolved after passing a presumed stone. 4. Hypertension, present on arrival. 5. Profound weakness, improving. 6. Blurred vision, improving. 7. Hyperlipidemia, present on arrival. CONSULTATIONS: None. PROCEDURES: CT scan of the abdomen and pelvis was performed on which revealed constipation and fat filled inguinal hernias. HISTORY AND PHYSICAL EXAMINATION: See admit note. DISCHARGE PHYSICAL EXAMINATION: Vital signs: Temperature 98.1 degrees, heart rate 55, respirations 18, and blood pressure is 144/90. General: Well nourished, well developed in no acute distress. Cardiovascular: Regular rate and rhythm. No significant murmurs, rubs, or gallops. Pulmonary: Clear to auscultation bilaterally. Abdomen: Soft, nontender, and nondistended. Positive bowel sounds. Extremities: Moves all extremities well. No significant clubbing, cyanosis, or edema. Dermatologic: Evaluation reveals no evidence of rash. LABORATORY DATA: Prior to discharge. Glucose is 200. HOSPITAL COURSE: Patient was admitted as per history and physical examination. Hospital course per condition is as follows. 1. Diabetes-upon admission, patient had a known diagnosis of diabetes. He had recently been started on metformin therapy. Despite this, blood sugars were noted to be grossly elevated. The patient was treated with IV fluids. Metformin was continued. Januvia was added. Sliding scale insulin was also utilized. While hospitalized, blood sugar remained 200 or less. We will discharge patient on metformin and Januvia therapy. We will refer patient immediately for diabetic education. The patient is to keep a blood sugar log between now and next visit. Should blood sugars remain elevated well below threshold for adding medical intervention. We will encourage adequate hydration. 2. Urinary tract infection-initial urinalysis returned significantly abnormal. We will continue to follow culture. We will discharge patient home with five additional days of levofloxacin therapy. 3. Hematuria-Upon admission, patient was noted to have gross hematuria. Interestingly, patient passed what he describes as a stone. Upon passing this, his abdominal pain resolved. I suspect this is the etiology of his hematuria. We will plan to recheck a urinalysis upon follow up in clinic. 4. Hypertension-The patient has a longstanding history of hypertension. He was treated with home regimen while hospitalized. We will continue this. 5. Profound weakness-With treatment of his underlying urinary tract infection, diabetes, and presumed kidney stone, he has achieved improvement. 6. Blurred vision-this likely is diabetic associated. With better control of his blood sugars, his vision improved. We will continue to work towards improvement in his diabetic control. 7. Hyperlipidemia. The patient was continued on rosuvastatin therapy while hospitalized. 8. Discharge Condition: Good disposition and discharged to home. MEDICATIONS: 1. Coenzyme Q10 100 mg daily. 2. Crestor 5 mg at bedtime. 3. Metformin ER 1000 mg twice daily. 4. Levofloxacin 500 mg daily for 5 days. 5. Acetaminophen 650 mg every 4 hours as needed. 6. Clonidine 0.1 mg 3 times daily. 7. Januvia 100 mg daily. 8. Amlodipine 5 mg twice daily. 9. Aspirin 81 mg daily. 10. Propranolol 20 mg twice daily. 11. Losartan 100 mg daily. FOLLOWUP: The patient is to follow up with me in approximately 1 to 2 weeks. cc: Chintan Burrell MD
== END 2018-11-16 16:57 | disposition home or self-care (01) | DRG 638 ==
LOC: DIRADM 18:12 → 4N 18:20
PROVIDERS: ADMIT Internal Medicine; ATTEND Internal Medicine
CPT/HCPCS: 74176; 80053; 81001; 82948; 83036; 84443; 85025; 87040; 87088; 93005; 93010; A9270; J1650; J1815; J7030; XXXXX

== ENCOUNTER 2019-02-01 18:43 | Observation (INO) ==
[2019-02-01] MEDS ORDERED: ASPIRIN PO ONE (19:07)
[2019-02-01] MEDS: NITROGLYCERIN TOP ONE ×2 (19:08)
--- NOTE | 2019-02-01 19:15 | PROVIDER DOCUMENTATION ---
HPI-Chest Pain - General Chief Complaint: General Adult Stated Complaint: CHEST PAIN-HX OF HEART PROBLEMS Time Seen by Provider: 02/01/19 19:01 Source: patient Allergies/Adverse Reactions: Patient Allergies Allergy/AdvReac Type Severity Reaction Status Date / Time methylprednisolone sodium Allergy Mild "makes him Verified 09/21/18 02:58 succ... * crazy' [From Solu-Medrol] Home Medications: Home Medication List Medication Instructions Recorded Confirmed Last Taken Type Amlodipine [Norvasc] 5 mg PO BID #60 tablet 05/04/16 11/15/18 05/01/17 07:00 Rx Aspirin 81 mg PO DAILY 10/12/16 11/15/18 05/01/17 07:00 History Losartan Potassium [Cozaar] 100 mg PO DAILY #0 10/21/16 11/15/18 05/01/17 07:00 Rx Propranolol HCl 20 mg PO BID #60 tablet 10/21/16 05/01/17 05/01/17 07:00 Rx Acetaminophen [Tylenol] 650 mg PO Q4H PRN PRN tab 11/16/18 Unknown Rx Clonidine [Catapres] 0.1 mg PO TID tab 11/16/18 Unknown Rx Levofloxacin [Levaquin] 500 mg PO DAILY #5 tab 11/16/18 Unknown Rx Metformin E.r. [Glucophage Xr] 1,000 mg PO BID tab 11/16/18 Unknown Rx ROSUVAstatin [Crestor] 5 mg PO QHS tab 11/16/18 Unknown Rx Sitagliptin [Januvia] 100 mg PO DAILY #90 tab 11/16/18 Unknown Rx Ubidecarenone [Coenzyme Q10] 100 mg PO DAILY cap 11/16/18 Unknown Rx - History of Present Illness-CP Nature of Presenting Problem: 49 YOM PRESENTS WITH C/O CP RADIATING TO BACK AND L ARM. HE DENIES SWEATING, NAUSEA, SOB OR OTHER SYMPTOMS. HE REPORTS L ARM HAS FELT NUMB ON AND OFF FOR THE LAST FEW NIGHTS. HE DENIES WEAKNESS IN THE ARM. HE DOES HAVE A PMH OF DM, HTN. Location: reports: substernal Chest Pain Radiation: reports: arms (L), back Quality of Pain: reports: none Severity in ED: mild Onset/Duration: just prior to arrival, 3 days ago (L ARM NUMBNESS INTERMITTETENT) Timing: still present Context/Activities at Onset: reports: none Modifying Factors: improves with: nothing Associated Symptoms: reports: denies symptoms Nitro Today/Relief: no nitro taken today Aspirin Treatment Today: 81 mg x 1, provided at home Prior Chest Pain/Cardiac Workup: reports: no prior cardiac workup Similar Symptoms Previously?: No Recently Seen Here or By Another Healthcare Provider: No Review of Systems - Adult - REVIEW OF SYSTEMS - ADULT Constitutional: reports: no symptoms reported. denies: see HPI, chills, fever, fatique, night sweats, weight gain, weight loss, other Eyes: reports: no symptoms reported. denies: see HPI, discharge, dry eyes, decreased vision, blurred vision, double vision, eye pain, redness, other Ears, Nose, Mouth & Throat: reports: no symptoms reported. denies: see HPI, ear discharge, ear pain, hearing loss, tinnitus, epistaxis, sinus problem, nose pain, loose teeth, mouth/dental pain, mouth swelling, hoarseness, throat pain, throat swelling, other Cardiovascular: reports: see HPI, chest pain. denies: no symptoms reported, edema, heart murmur, irregular heart rate, orthopnea, palpitations, poor circulation, PND, syncope, other Respiratory: reports: no symptoms reported. denies: see HPI, chronic cough, cough, dyspnea on exertion, excessive sputum production, hemoptysis, pleurisy, shortness of breath, wheezing, other Gastrointestinal: reports: no symptoms reported. denies: see HPI, abdominal pain, hematemesis, constipation, diarrhea, difficulty swallowing, frequent heartburn, nausea, poor appetite, rectal bleeding, vomiting, other Genitourinary: reports: no symptoms reported. denies: see HPI, dysuria, discharge, frequency, flank pain, frequent UTI's, hematuria, hesitency, incontinence, urinary retention, urgency, other Musculoskeletal: reports: no symptoms reported. denies: see HPI, bone pain, back pain, frequent leg cramps, joint pain, joint swelling, muscle aches, muscle weakness, neck pain, other Integumentary: reports: no symptoms reported. denies: see HPI, hives, hair loss, itching, mole changes, nail changes, rash, skin sores/ulcer, skin thickening, other Neurological: reports: see HPI, numbness (L ARM INTERMITTETENT). denies: no symptoms reported, ataxia, dizziness/vertigo, headache/migraines, loss of balance, paresthesia, seizure, slurred speech, syncope, tremors, other Psychiatric: reports: no symptoms reported. denies: see HPI, anxiety, anti- depressant use, alcohol/drug dependence, depression, emotional problems, insomnia, panic attacks, suicidal thoughts, other Endocrine: reports: no symptoms reported. denies: see HPI, change in skin pigment, excessive sweating, goiter, cold intolerance, heat intolerance, increased hunger, increased thirst, polyuria, other Hematologic/Lymphatic: reports: no symptoms reported. denies: see HPI, blood clots, easy bruising, low blood count, lymphedema, prolonged bleeding, swollen lymph nodes, transfusions, other Allergic/Immunologic: reports: no symptoms reported. denies: see HPI, allergic reactions, allergic rhinitis, asthma, eczema, food allergy, frequent infections, hay fever, hives, positive PPD, urticaria, other Past History - Adult - PAST MEDICAL HISTORY-ADULT Review of Records: reports: Nursing Assessment Review Major Childhood Illnesses: reports: denies history Cardiovascular: reports: HTN Respiratory: reports: denies history Gastrointestinal: reports: GERD Obstetrical/Gynecological: reports: denies history Genitourinary: reports: denies history Musculoskeletal: reports: chronic pain, neck/back injury Neurological: reports: CVA, other (pinched nerve in the back) Endocrine/Immune: reports: thyroid disorder Other Conditions: reports: denies history - PRIOR SURGERIES/PROCEDURES Surgical/Procedure History: reports: reviewed, not pertinent, other (circumcisi on) - IMMUNIZATION STATUS Childhood Immunizations: UTD, See Nurse Assessment Flu Vaccine: See Nurse Assessment - FAMILY HISTORY Family History: reviewed, not pertinent Physical Exam-General - PHYSICAL EXAM-ADULT Initial Vital Signs Reviewed: Yes - CONSTITUTIONAL General Appearance: appears well, alert, no apparent distress - EYES Eyes: PERRL/EOMI - HEAD, EARS, NOSE, MOUTH & THROAT HENMT: normocephalic/atraumatic, moist mucous membranes, normal ENT inspection - NECK Neck: non-tender, full range of motion, supple - RESPIRATORY Respiratory: chest non-tender, lungs clear, normal breath sounds, no pleuratic c hest pain, no respiratory distress, no accessory muscle use - CARDIOVASCULAR Cardiovascular: normal peripheral pulses, regular rate, rhythm, no edema, no gallop, no JVD, no murmur - GASTROINTESTINAL (ABDOMEN) Abdominal Exam: normal bowel sounds, non tender, soft - LYMPHATIC Lymphatic: no adenopathy - MUSCULOSKELETAL Back Exam: normal inspection Extremity: normal range of motion, non-tender, normal gait - SKIN Integumentary: normal color, normal turgor, warm/dry - NEUROLOGIC Neurologic: grossly normal - PSYCHIATRIC Psych/Mental Status: normal mood/affect, oriented x 3 - HEART Score HEART Score: History: Moderately Suspicious HEART Score: ECG: Normal HEART Score: Age: 45-65 Years HEART Score: Risk Factors for Atherosclerotic Disease: > or = 3 Risk Factors or History of Atherosclerotic Disease HEART Score: Troponin: < or = Normal Limit Total HEART Score:: 4 Progress - PLAN OF CARE/RESULTS Progress/Plan/Lab Results: Vital Signs - 8 hr 02/01/19 18:51 Temperature 98.1 F Pulse Rate 73 Respiratory Rate 20 Blood Pressure 180/106 O2 Sat by Pulse Oximetry 97 Laboratory Results - last 24 hr 02/01/19 02/01/19 02/01/19 19:05 19:05 19:05 WBC 8.23 RBC 4.49 L Hgb 13.6 L Hct 40.9 L MCV 91.1 MCH 30.3 MCHC 33.3 RDW Std Deviation 12.4 Plt Count 278 MPV 9.6 Immature Gran % (Auto) 0.0 Neut % (Auto) 55.2 Lymph % (Auto) 34.5 [place] % (Auto) 9.6 H Eos % (Auto) 0.6 Baso % (Auto) 0.1 Immature Gran # (Auto) 0.00 Neut # (Auto) 4.54 Lymph # (Auto) 2.84 [place] # (Auto) 0.79 H Eos # (Auto) 0.05 Baso # (Auto) 0.01 PT 13.9 INR 0.99 PTT (Actin FS) 25.9 Sodium 142 Potassium 3.8 Chloride 102 Carbon Dioxide 28 Anion Gap 12 BUN 18 Creatinine 1.0 Estimated GFR/1.73 m2 > 60 BUN/Creatinine Ratio 18 Glucose 133 H Calculated Osmolality 287 Calcium 9.0 Total Bilirubin < 0.15 L AST 11 ALT 11 Alkaline Phosphatase 71 Creatine Kinase 206 H Creatine Kinase Index 1.4 CK-MB (CK-2) 2.92 Troponin T Total Protein 7.2 Albumin 4.6 Globulin 2.6 Albumin/Globulin Ratio 1.8 02/01/19 19:05 WBC RBC Hgb Hct MCV MCH MCHC RDW Std Deviation Plt Count MPV Immature Gran % (Auto) Neut % (Auto) Lymph % (Auto) [place] % (Auto) Eos % (Auto) Baso % (Auto) Immature Gran # (Auto) Neut # (Auto) Lymph # (Auto) [place] # (Auto) Eos # (Auto) Baso # (Auto) PT INR PTT (Actin FS) Sodium Potassium Chloride Carbon Dioxide Anion Gap BUN Creatinine Estimated GFR/1.73 m2 BUN/Creatinine Ratio Glucose Calculated Osmolality Calcium Total Bilirubin AST ALT Alkaline Phosphatase Creatine Kinase Creatine Kinase Index CK-MB (CK-2) Troponin T < 0.010 Total Protein Albumin Globulin Albumin/Globulin Ratio Orders Category Date Time Status CT HEAD W/O CONTRAST [CT] Stat Exams 02/01/19 19:20 Completed CBC WITH ELECTRONIC DIFF [HEME] Stat Lab 02/01/19 19:05 Completed CK PROFILE [SP CHEM] Stat Lab 02/01/19 19:05 Completed COMPREHENSIVE METABOLIC PANEL [CHEM] Stat Lab 02/01/19 19:05 Completed PT [PROTIME WITH INR] [COAG] Stat Lab 02/01/19 19:05 Completed PTT [COAG] Stat Lab 02/01/19 19:05 Completed TROPONIN T Stat Lab 02/01/19 19:05 Completed Aspirin Med 02/01/19 19:07 Discontinued 325 mg PO NOW ONE Nitroglycerin Med 02/01/19 19:08 Discontinued 0.5 inch TOP NOW ONE EKG [EKG] Stat Ther 02/01/19 19:00 Ordered Result Diagrams: 02/01/19 19:05 02/01/19 19:05 - EKG 1 Time of EKG reading by physician:: 19:00 EKG Read and Signed by:: Kirby Dawson EKG Interpretation (*Must complete 3 of following elements*): Normal Rate: 76 Rhythm: NSR [place]: right QRS: normal OK Interval: normal ST Wave: normal - CT/MRI 1 CT Study: Head Impression: See EMR Report (EXAM: CT HEAD W/O CONTRAST 02/01/2019 HISTORY: prior stroke/arm numbness TECHNIQUE: This exam was performed using automated exposure control, adjustment of mA or kV according to patient size, and/or use of iterative reconstruction technique. COMMENT: There is no evidence of mass effect, bleed, or abnormal extra-axial fluid collection. There are calcifications present in the left vertebral and both internal carotid arteries. Compared to 12/21/2017 there has been no significant change. IMPRESSION: No evidence of acute intracranial disease. Electronically signed by Nav Fernandes 02/01/2019 8:07 PM) - CONSULTS/PCP/HOSPITALIST Notification #1 *Consult/PCP/Hospitalist*: DR PIZANO Time Discussed: 21:02 Consult Disposition: Admit Departure - Departure Date of Disposition Decision: 02/01/19 Time of Disposition Decision: 21:02 DIAGNOSIS: Chest pain Disposition: ADMITTED INPATIENT 09 Certified Medical Emergency: Emergent Condition: Stable Referrals and Follow-Ups: Chintan Burrell MD [Primary Care Provider] - - Critical Care Note This patient required my direct & personal management of CC.: No Attestation - Physician/ MICHELLE Attestation Patient care was provided by Advanced Practice Provider:: Yes Advanced Practice Provider:: Stephania Koch Advanced Practice Provider documentation review:: The Mid-level provider documentation, treatment plan and medical decision making was reviewed by the physician who agrees with all treatment and medical decision making by the MLP. The physician spent face to face time with patient:: No Advanced Practice Provider documentation review:: Supervising physician onsite and consulted in the evaluation and care of this patient. The physician did not have a face to face encounter with the patient.
[2019-02-01 19:20] LABS: BASO# 0.01 X1000 (0.0-0.2); BASO% 0.1 % (0.0-0.8); EOS# 0.05 X1000 (0.0-0.7); EOS% 0.6 % (0.0-10.0); HEMATOCRIT 40.9 % (42.0-52.0); HEMOGLOBIN 13.6 g/dL (14.0-18.0); LYMPH# 2.84 X1000 (1.2-3.4); LYMPH% 34.5 % (20.5-51.1); MCH 30.3 PG (27-31); MCHC 33.3 g/dL (33-37); MCV 91.1 FL (81-99); MONO# 0.79 X1000 (0.11-0.59); MONO% 9.6 % (1.7-9.3); MPV 9.6 FL (7.4-10.4); NEUT# 4.54 X1000 (1.4-6.5); NEUT% 55.2 % (42.2-75.2); PLT 278 X1000 (130-400); RBC 4.49 XMIL (4.7-6.1); RDW 12.4 % (11.5-14.5); WBC 8.23 X1000 (4.8-10.8)
[2019-02-01 19:27] LABS: INR 0.99; PROTIME 13.9 Seconds (11.0-16.0)
[2019-02-01 19:28] LABS: PTT 25.9 Seconds (22.3-41.8)
[2019-02-01 19:36] LABS: AGAP 12; ALB/GLOB RATIO 1.8; ALBUMIN 4.6 g/dL (3.5-5.0); ALKALINE PHOSPHATASE 71 U/L (32-122); BUN 18 mg/dL (8-22); CHLORIDE 102 mmol/L (98-107); CK PROFILE 206 U/L (24-204); COSMO 287; ESTIMATED GFR > 60; GLUCOSE 133 mg/dL (70-104); GOT 11 U/L (10-34); GPT 11 U/L (10-44); POTASSIUM 3.8 mmol/L (3.5-5.1); SODIUM 142 mmol/L (136-145); TCO2 28 mmol/L (25-35); TOTAL BILIRUBIN < 0.15 mg/dL (0.20-1.00); TOTAL PROTEIN 7.2 g/dL (6.3-8.3)
[2019-02-01 19:56] LABS: CK INDEX 1.4 (0.0-2.5); CK-MB 2.92 ng/mL (0.0-5.0)
--- NOTE | 2019-02-01 20:09 | Diag Imaging Result Doc PS360 ---
EXAM: CT HEAD W/O CONTRAST 02/01/2019 HISTORY: prior stroke/arm numbness TECHNIQUE: This exam was performed using automated exposure control, adjustment of mA or kV according to patient size, and/or use of iterative reconstruction technique. COMMENT: There is no evidence of mass effect, bleed, or abnormal extra-axial fluid collection. There are calcifications present in the left vertebral and both internal carotid arteries. Compared to 12/21/2017 there has been no significant change. IMPRESSION: No evidence of acute intracranial disease. Electronically signed by Nav Fernandes 02/01/2019 8:07 PM
[2019-02-01] MEDS ORDERED: ASPIRIN ONE (21:34)
[2019-02-01] MEDS ORDERED: MORPHINE IV ONE (22:05)
--- NOTE | 2019-02-01 22:30 | HISTORY AND PHYSICAL ---
PRIMARY CARE PHYSICIAN: Dr. Chintan Burrell. CHIEF COMPLAINT: Chest pain. HISTORY OF PRESENTING ILLNESS: A 49-year-old male with a history of diabetes mellitus type 2, hypertension, hyperlipidemia, and sleep apnea, who presented to emergency department with complaint of chest pain. He described it as pressure-like with radiation to left upper extremity. The patient states that he has been having some left upper extremity pain for several days or so, and he described it as numbness. However, the chest pain just recently started. The patient was seen in the ER, and due to his presenting symptoms, it was thought that we would place him for observation for further evaluation and management. At the time of my examination, he denied any headache, fever, chills, nausea, vomiting, diarrhea, hemoptysis, melena, weight changes, but complained of chest pain. PAST MEDICAL HISTORY: Includes diabetes mellitus type 2, hypertension, hyperlipidemia, sleep apnea. PAST SURGICAL HISTORY: Circumcision. ALLERGIES: Methylprednisone. SOCIAL HISTORY: No history of smoking, alcohol, or illicit drug use. CURRENT MEDICATIONS: Norvasc 5 mg p.o. b.i.d., aspirin 81 mg p.o. daily, clonidine 0.1 mg p.o. t.i.d., losartan 100 mg p.o. daily, metformin 1000 mg p.o. b.i.d., propranolol 20 mg p.o. b.i.d., rosuvastatin 5 mg p.o. at bedtime, Januvia 100 mg p.o. daily. FAMILY HISTORY: No history of coronary disease. REVIEW OF SYSTEMS: A 14-point review of systems is as in HPI. Other systems negative. PHYSICAL EXAMINATION: GENERAL: Cooperative, friendly male. He is resting more comfortably now. VITAL SIGNS: Temperature 98.1 degrees, pulse 73, respirations 20, blood pressure 180/106. HEENT: Atraumatic, normocephalic. Extraocular movements intact. PERRLA. NECK: No masses. CHEST: Clear to auscultation. CARDIOVASCULAR: Regular rate and rhythm. ABDOMEN: Soft. Positive bowel sounds. EXTREMITIES: No edema. NEUROLOGIC: He is awake, alert, oriented x3. GENITOURINARY: No bladder distention. SKIN: Warm. LABORATORIES AND STUDIES: WBC is 8.23, hemoglobin 13.6, hematocrit 40.9, platelets 278,000. Sodium 142, potassium 3.8, chloride 102, CO2 is 28, BUN is 18, creatinine is 1.0, glucose 133. Head CT was done, no evidence of any acute intracranial disease. ASSESSMENT: A 49-year-old male with a history of diabetes mellitus type 2, hypertension, hyperlipidemia, and sleep apnea, who presented to emergency department with 1-day history of having chest pain. We will place the patient for observation for further evaluation and management. 1. Chest pain. 2. Diabetes mellitus type 2. 3. Hypertension. 4. Sleep apnea. PLAN: 1. We will admit patient to medical floor with telemetry. 2. Continue with cardiac workup. Check EKG, serial cardiac enzymes. Have patient continue on aspirin. We will have patient on nitroglycerin and p.r.n. morphine p.r.n. chest pain. 3. We will consult Cardiology. 4. Monitor blood glucose and put patient on sliding scale insulin regimen. 5. Monitor blood pressure and resume antihypertensive agent. 6. Sleep apnea is stable. However, if he still having difficulty, we will use CPAP. 7. We will put patient on DVT prophylaxis with SCDs. 8. Continue to follow and reassess, and make further recommendation based on patient's clinical course. cc: Seth Quintana MD
[2019-02-01] MEDS: LOVENOX SUBQ SCH (23:13)
[2019-02-02] MEDS ORDERED: MELATONIN PO ONE (01:03)
[2019-02-02] MEDS: MORPHINE IV PRN ×3 (03:13→23:41)
--- NOTE | 2019-02-02 04:45 | EKG Report ---
Test Performed on : 02/02/2019 04:40:39 AM Test Reason : Chest Pain,Bradycardia Blood Pressure : / mmHG Vent. Rate : 047 BPM Atrial Rate : 047 BPM P-R Int : 236 ms QRS Dur : 094 ms QT Int : 468 ms P-R-T Axes : 029 078 030 degrees QTc Int : 414 ms Sinus bradycardia. with 1st degree AV block. Otherwise normal ECG When compared with ECG of 01-FEB-2019 18:47, (Unconfirmed) [place] interval has increased Vent. rate has decreased BY 29 BPM Confirmed by Chintan Burrell MD ([id number]) on 02/05/2019 8:07:17 PM
--- NOTE | 2019-02-02 04:58 | EKG Report ---
Test Performed on : 02/01/2019 6:47:04 PM Test Reason : CP Blood Pressure : / mmHG Vent. Rate : 076 BPM Atrial Rate : 076 BPM P-R Int : 194 ms QRS Dur : 096 ms QT Int : 386 ms P-R-T Axes : 056 109 035 degrees QTc Int : 434 ms Normal sinus rhythm. Rightward axis Borderline ECG When compared with ECG of 15-NOV-2018 18:43, No significant change was found Unconfirmed Result
[2019-02-02] MEDS: HUMULIN R SUBQ SCH ×4 (07:02→21:18)
[2019-02-02] MEDS: PRILOSEC PO SCH (07:02)
[2019-02-02] MEDS ORDERED: TYLENOL PO PRN (08:46)
[2019-02-02] MEDS ORDERED: JANUVIA PO SCH (09:00)
[2019-02-02] MEDS ORDERED: COZAAR PO SCH (09:00)
[2019-02-02] MEDS ORDERED: ASPIRIN PO SCH (09:00)
[2019-02-02 10:02] LABS: CHOLESTEROL 171 mg/dL (0-200); HDL 40 mg/dL (35-55); LDL 114 mg/dL; TRIGLYCERIDES 84 mg/dL (39-160); VLDL 17 mg/dL
--- NOTE | 2019-02-02 11:32 | CARDIOLOGY CONSULTATION ---
DATE: 02/02/2019 REASON FOR CONSULTATION: Cardiology was consulted for chest pain. HISTORY OF PRESENT ILLNESS: A 49-year-old, -[place] gentleman with a history of diabetes, hypertension, and hyperlipidemia. Came to the emergency room with complaints of chest pain. He describes it as a pressure-like sensation with radiation to the left arm. He was ruled out for myocardial infarction by cardiac enzymes. He was also noted to have elevated blood pressures. There is no history of palpitations. There is no dizziness or syncope. REVIEW OF SYSTEMS: A 14-point review of systems was done. GI System: There is no history of nausea, vomiting, diarrhea. There is no history of hematemesis or melena. Central Nervous System: No focal weakness to suggest a CVA or TIA. Genitourinary System: There is no dysuria or hematuria. PAST MEDICAL HISTORY: 1. Hypertension. 2. Diabetes 3. Hyperlipidemia. 4. Sleep apnea. ALLERGIES: Allergic to methylprednisone. SOCIAL HISTORY: There is no history of smoking or illicit drug abuse. HOME MEDICATIONS: Norvasc 5 b.i.d., aspirin 81, clonidine 0.1 p.o. t.i.d., losartan 100, metformin 1000 b.i.d., propranolol 20 b.i.d., Crestor 5, Januvia 100. EXAMINATION: Blood pressure when he came in was 180/100. Today, his blood pressure is. 143/69. First and second heart sounds were heard. There is no S3, S4, or gallop. Respiratory System: Normal air entry. There are no crepitations or rhonchi. Abdomen: Soft, nontender. There was no guarding or rigidity. Bowel sounds were heard. Central Nervous System: Alert and was moving all 4 extremities. Examination of extremities revealed no pedal edema. HEENT: Atraumatic, normocephalic. Pupils were equal and reacting to light. LABORATORY EXAMINATION: Revealed cardiac enzymes were negative. Sodium 142, potassium 3.8, BUN 18, creatinine 1.0. WBC. 8.23, hemoglobin 13.6, hematocrit. 40.9, platelet count of 278,000. Head CT was unremarkable. He has had a history of TIA in the past. Chest x-ray was unremarkable. ASSESSMENT AND PLAN: 1. Mr. Joaquin Stafford is a 49-year-old, -[place] gentleman with a history of a transient ischemic attack in the past, hypertension, and diabetes. Comes in with complaints of chest pain and accelerated hypertension. Blood pressures are better controlled now. We will get renal duplex studies done to assess for and rule out renal artery stenosis, given his accelerated hypertension. 2. Chest pains, probably related to blood pressure. Given his symptoms, we will set him up to undergo a Lexiscan Cardiolite stress test to rule out ischemia. 3. We will get an echocardiogram to assess cardiac and valvular function. 4. Diabetes. Continue with his current medications. 5. Hyperlipidemia. Continue with his current medications. Thank you for the consult. We will follow hospital course. cc: MD Chintan Montez MD
--- NOTE | 2019-02-02 12:59 | Diag Imaging Result Doc PS360 ---
EXAM: US DUPLEX RENAL ARTY/VEIN LMTD INDICATION: HTN, rule out renal artery stenosis TECHNIQUE: COMPARISON: None. FINDINGS: The aortic peak systolic velocity is 42 cm/s. Right: The peak systolic velocity measures 38, 40, and 44 cm/s at the proximal, mid, and distal right renal artery, respectively. The peak systolic velocity measures 22, 25, and 19 cm/s at the upper, mid, and lower right segmental artery, respectively. The right renal artery ratio is 1.05. The resistive index is 0.69. The right kidney measures 12 cm in the greatest longitudinal axis and the right renal cortex measures up to 7 mm in thickness. It is unremarkable, otherwise. Left: The peak systolic velocity measures 53, 40, and 32 cm/s at the proximal, mid, and distal left renal artery, respectively. The peak systolic velocity measures 23, 24, and 18 cm/s at the upper, mid, and lower segmental arteries, respectively. The left renal artery ratio is 1.26. The resistive index is 0.72. There is an incidental 1.2 cm simple cyst associated with the left kidney. It is unremarkable, otherwise. The left kidney measures 11.9 cm in the greatest longitudinal axis. The left renal cortex measures up to 1.3 cm in thickness. IMPRESSION: No Doppler evidence of hemodynamically significant renal artery stenosis. Electronically signed by Rafa Smith 02/02/2019 12:57 PM
--- NOTE | 2019-02-02 14:01 | ECHO REPORT ---
ORDER DATE: 02/02/2019 INDICATION: Chest pain. FINDINGS: 1. Right atrium is mildly enlarged at 4.0 cm. 2. Mild tricuspid regurgitation. RV systolic pressure of 28. 3. Normal RV size and systolic function. 4. Mild pulmonic insufficiency. 5. Normal left atrial size with a volume index of 26. 6. No mitral valve prolapse. No significant mitral regurgitation. No mitral stenosis identified. 7. Normal LV size, end-diastolic dimension of 5.3. Mild left ventricular hypertrophy with a posterior and interventricular septal wall thickness of 1.2 cm each. Normal LV systolic function. Estimated EF of 60% with normal wall motion. 8. Aortic valve opens well. There is mild insufficiency. The valve appears trileaflet. No stenosis. 9. The aorta appears somewhat dilated at the root with a dimension of 4.1 cm. 10. No pericardial effusion identified. cc: MD Chintan Ohara MD
[2019-02-02] MEDS ORDERED: ZOFRAN IV PRN (14:41)
--- NOTE | 2019-02-02 15:59 | Diag Imaging Result Document ---
PROCEDURE NAME: MYOCARDIAL PERF SCAN, STR/REST - 02/02/2019 INDICATION: Chest pain. PROCEDURES PERFORMED: 1. Michelle protocol stress. 2. One-day stress/rest myocardial perfusion imaging. PROCEDURE IN DETAIL: Mr. Stafford is brought to the nuclear laboratory and had a resting study with injection of 14.8 mCi of technetium-99m sestamibi with usual imaging protocol utilized. He subsequently was brought back and had a Michelle protocol stress. At peak stress, he was injected with 47.3 mCi of technetium-99m sestamibi with usual imaging protocol utilized. FINDINGS: MICHELLE PROTOCOL STRESS RESULTS: 1. Baseline EKG shows sinus rhythm. 2. Patient exercised for a total of 11 minutes achieving peak heart rate of 150 which was 87% of age predicted max. He achieved 13.1 METS and stage IV of the Michelle protocol. Exercise capacity was 112% of age and sex predicted exercise capacity. 3. Appropriate blood pressure response to exercise. 4. Test was terminated due to fatigue. 5. No anginal complaints occurred during the course of study. 6. No ischemic-related EKG changes or significant arrhythmias were identified. Occasional PVCs and PACs occurred. Again, no significant ischemic changes. PERFUSION IMAGING RESULTS: 1. No evidence of abnormal extracardiac uptake. 2. TID ratio 0.84. 3. Perfusion imaging demonstrates normal homogenous uptake of radiotracer throughout the myocardial segments. No evidence of stress-related defects. 4. There is a normal ejection fraction of 57%. End-diastolic volume 109, end- systolic volume of 47. Normal wall motion. cc: MD Trudy Ohara PA
[2019-02-02] MEDS: CATAPRES PO SCH ×3 (16:00→21:18)
[2019-02-02] MEDS: INDERAL PO SCH ×2 (16:01→21:18)
[2019-02-02] MEDS: NORVASC PO SCH ×2 (16:05→21:18)
[2019-02-02] MEDS ORDERED: GLUCOPHAGE XR PO SCH (21:00)
[2019-02-02] MEDS ORDERED: FLOMAX PO SCH (21:00)
--- NOTE | 2019-02-02 21:09 | PROGRESS NOTE ---
DATE: 02/02/2019 SUBJECTIVE: The patient was admitted yesterday with chest discomfort. Full evaluation was pursued. Serial cardiac enzymes returned negative. Upon my arrival this morning, patient continued to have some mild chest discomfort. This is located on the left side. He denies significant radiating pain, nausea, or vomiting. Cardiology was consulted. Echocardiogram was ordered. Echocardiogram returned today with a normal ejection fraction. No wall motion abnormalities were identified. Cardiology recommended stress testing. Stress testing returned without evidence of active ischemia. The CV the evening, upon my arrival, the patient's chest discomfort had improved; however, he was noted to have considerable nausea and feeling of ill being. He attributed this to the stress test. There has been no evidence of fevers or chills. OBJECTIVE: T-max 98.1, heart rate 56 to 72, respirations 18 to 20, blood pressure 133 to 180 over 69 to 106.General: Well nourished, well developed, no acute distress. Cardiovascular: Regular rate and rhythm. No significant murmurs, rubs, or gallops. Pulmonary: Clear to auscultation bilaterally. Abdomen: Soft, nontender, nondistended. Positive bowel sounds. Extremities: Moves all extremities well. No significant clubbing, cyanosis, or edema. Dermatologic: Evaluation reveals no evidence of rash. LABORATORY DATA: Total cholesterol 171, HDL 40, LDL is 114, triglycerides 84. ASSESSMENT AND PLAN: 1. Chest pain - The patient's cardiac enzymes returned negative. Stress testing returned negative. This likely is a consequence of his underlying hypertension. We will address this as described below. For now, we will continue to optimize the patient's medical and nonmedical management. 2. Hypertension - The patient has difficult to control disease. With resuming patient's home medications, the patient has achieved improvement, approaching goal blood pressure. Renal ultrasound revealed no evidence of renal artery stenosis. We will continue his current regimen. 3. Hyperlipidemia - It does not appear the patient is currently taking his rosuvastatin. We will attempt to resume this. 4. Diabetes - We will resume patient's metformin therapy. We will continue Januvia and sliding scale insulin. 5. Disposition - At this point, the patient continues to require residential care in a hospital setting. We will plan discharge home once able. cc: Chintan Burrell MD
[2019-02-02] MEDS: LOVENOX SUBQ SCH (22:18)
[2019-02-03] MEDS: HUMULIN R SUBQ SCH (06:04)
[2019-02-03] MEDS: PRILOSEC PO SCH (06:21)
[2019-02-03 07:45] VITALS: BP 135/80
--- NOTE | 2019-02-04 21:03 | DISCHARGE SUMMARY ---
ADMISSION DATE: 02/01/2019 DISCHARGE DATE: 02/03/2019 ADMISSION DIAGNOSIS: Chest pain. DISCHARGE DIAGNOSES: 1. Chest discomfort, likely noncardiac. 2. Hypertension, present on arrival. 3. Hyperlipidemia, present on arrival. 4. Diabetes, present on arrival. CONSULTATIONS: Dr. Montalvo with Cardiology was consulted for further evaluation and management of chest discomfort. PROCEDURES: 1. CT scan of the head was performed on 02/01/2019 which revealed no evidence of intracranial disease. 2. Echocardiogram was performed on 02/02/2019 which revealed right atrium is mildly enlarged at 4.0 cm. Mild tricuspid regurgitation. RV systolic pressure of 28. Normal RV size and systolic function. Mild pulmonic insufficiency. Normal left atrial size with a volume index of 26. No mitral valve prolapse. No significant mitral regurgitation. No mitral stenosis identified. Normal LV size, end-diastolic dimension of 5.3. Mild left ventricular hypertrophy with a posterior and interventricular septal wall thickness of 1.2 cm each. Normal left ventricular systolic function. Estimated ejection fraction of 60% with normal wall motion. Aortic valve opens well. There is mild insufficiency. Valve appears trileaflet. No stenosis. Aorta appears somewhat dilated at the root with a dimension of 4.1 cm. No pericardial effusion identified. 3. Myocardial perfusion scan was performed on 02/02/2019 which revealed no evidence of abnormal extracardiac uptake. Perfusion imaging demonstrated normal homogeneous uptake of radiotracer throughout the myocardial segments. No evidence of stress related defect. There was a normal ejection fraction of 57%. End-diastolic volume of 109, end systolic volume of 47. Normal wall motion. 4. Renal ultrasound suggests no Doppler evidence of hemodynamically significant renal artery stenosis. HISTORY AND PHYSICAL EXAMINATION: See admit note. PHYSICAL EXAMINATION: Prior to discharge temperature 97.7 degrees, heart rate 61, respirations 18, blood pressure is 135/80. General: Well nourished, well developed, no acute distress. Cardiovascular: Regular rate and rhythm. No significant murmurs, rubs, or gallops. Pulmonary: Clear to auscultation bilaterally. Abdomen: Soft, nontender, nondistended. Positive bowel sounds. Extremities: Moves all extremities well. No significant clubbing, cyanosis or edema. Dermatologic: Evaluation reveals no evidence of rash. LABORATORY DATA: Prior to discharge. None. HOSPITAL COURSE: Patient was admitted as per history and physical examination. Hospital course per condition is as follows. 1. Chest discomfort-upon admission, patient was noted to have chest discomfort. With multiple risk factors, full evaluation was deemed warranted. Echocardiogram and stress testing returned with above-mentioned results. With no evidence of acute disease, it was felt this likely was musculoskeletal versus reflux in etiology. The patient will be followed closely as an outpatient. 2. Hypertension-the patient has longstanding disease. It was felt that this may have contributed to his chest discomfort. Once patient's home medications were resumed, blood pressures remained reasonably controlled while hospitalized. We will discharge patient on his home regimen with close followup. 3. Hyperlipidemia-the patient was continued on rosuvastatin while hospitalized. Unfortunately, he ran out of this several weeks ago. I have asked patient to resume as an outpatient. 4. Diabetes-the patient is currently being treated with metformin and Januvia therapy as an outpatient. This will be resumed. We will continue to encourage a diabetic diet. DISCHARGE CONDITION: Good. DISPOSITION: Discharge to home. MEDICATIONS: 1. Flomax 0.4 mg at bedtime. 2. Prilosec 20 mg daily. 3. Norvasc 5 mg twice daily. 4. Propranolol 20 mg twice daily. 5. Losartan 100 mg daily. 6. Metformin 1000 mg twice daily. 7. Acetaminophen 650 mg every 4 hours as needed. 8. Clonidine 0.1 mg 3 times a day. 9. Januvia 100 mg daily. FOLLOWUP: The patient is to follow up with me in approximately 1 to 2 weeks. cc: Chintan Burrell MD
== END 2019-02-03 09:30 | disposition home or self-care (01) ==
LOC: 1N 18:43 → ED 18:43 → SUATTDRO 22:32 → 1N 02-02 01:34
PROVIDERS: ADMIT Internal Medicine; ATTEND Internal Medicine
CPT/HCPCS: 70450; 78452; 80053; 80061; 82550; 82553; 82948; 84484; 85025; 85610; 85730; 93005; 93017; 93306; 93976; 94761; A9270; A9500; J1650; J2270; J2405; XXXXX